=== PATIENT | female | born 2005 | race Two or more races ===

== ENCOUNTER 2024-04-01 07:06 | Day surgery (SDC) | payer BC ==
[2024-03-31 10:39] VITALS: BMI 26.6
[2024-04-01 09:04] LABS: Hematocrit 41.3 % (36.0-47.0)
[2024-04-01 09:13] LABS: BHCG - Serum Negative (NEGATIVE); Pregs Control Background? CLEAR/WHITE (CLR/WHITE); Pregs Control Bar Appear? YES (CONTROL BAR)
[2024-04-01] MEDS ORDERED: fentaNYL PF 100 MCG/2 ML SYRINGE ONE (09:25)
[2024-04-01] MEDS ORDERED: PROPOFOL 20 ML ONE (09:25)
[2024-04-01] MEDS ORDERED: Midazolam HCl 2 mg/2 ml Vial ONE (09:25)
[2024-04-01] MEDS ORDERED: Dexamethasone 20 MG/5 ML VIAL ONE (09:26)
[2024-04-01] MEDS ORDERED: Lidocaine 1% PF 5 ML VIAL ONE (09:26)
[2024-04-01] MEDS ORDERED: Ondansetron PF 4 MG/2 ML Vial ONE (09:26)
[2024-04-01] MEDS ORDERED: Ferric Subsulfate 8 ML TOPICAL SOLN ONE (09:27)
[2024-04-01] MEDS ORDERED: Albuterol HFA (OR) 200 PUFF INH ONE (09:58)
[2024-04-01] MEDS ORDERED: Acetaminophen 325 MG (10.15 ML) UDCUP ONE (11:04)
== END 2024-04-01 11:56 | disposition home or self-care (01) ==
LOC: SDC 07:06
PROVIDERS: ATTEND Otolaryngology Plastic Surgery within the Head & Neck
DX: J35.3 Hypertrophy of tonsils with hypertrophy of adenoids (principal); J35.1 Hypertrophy of tonsils; J34.3 Hypertrophy of nasal turbinates; J03.91 Acute recurrent tonsillitis, unspecified; C18.1 Malignant neoplasm of appendix
CPT/HCPCS: 84703; 85014; 88300; J1100; J2250; J2405; J2704